=== PATIENT | female | born 1995 | race African-American/Black ===

== ENCOUNTER 2017-08-06 19:07 | Emergency (ER) | payer OTHER, SELFPAY ==
--- NOTE | 2017-08-06 19:49 | RAD ---
LEFT KNEE FOUR VIEWS: 08/06/17 HISTORY: Fall at work with knee pain. There is a small joint effusion present. There is no signs of fracture or dislocation. If internal de rangement is clinically suspected, MRI is suggested. IMPRESSION: Joint effusion. No definite signs of acute fracture. POS: WU
== END 2017-08-06 20:59 | disposition home or self-care (01) ==
LOC: ERS 19:07
DX: S83.92XA Sprain of unspecified site of left knee, initial encounter (principal); R56.9 Unspecified convulsions; W19.XXXA Unspecified fall, initial encounter; Y92.69 Other specified industrial and construction area as the place of occurrence of the external cause; Y99.0 Civilian activity done for income or pay

== ENCOUNTER 2017-08-21 20:50 | Emergency (ER) | payer SELFPAY ==
[2017-08-21] MEDS ORDERED: Ketorolac Tromethamine 30 MG/ML VIAL ONE (23:00)
== END 2017-08-22 00:26 | disposition home or self-care (01) ==
LOC: ERS 20:50
DX: J11.1 Influenza due to unidentified influenza virus with other respiratory manifestations (principal); R56.9 Unspecified convulsions
CPT/HCPCS: 96372; J1885

== ENCOUNTER 2017-10-19 06:17 | Emergency (ER) | payer SELFPAY ==
[2017-10-19] MEDS ORDERED: diphenhydrAMINE 50 MG/ML VIAL ONE (06:43)
[2017-10-19] MEDS ORDERED: Acetaminophen 500 MG TAB ONE (06:43)
[2017-10-19] MEDS ORDERED: Metoclopramide HCl 10 MG/2 ML VIAL ONE (06:43)
== END 2017-10-19 09:48 | disposition home or self-care (01) ==
LOC: ERS 06:17
DX: R51 Headache (principal); G40.909 Epilepsy, unspecified, not intractable, without status epilepticus
CPT/HCPCS: 96365; 96375; J1200; J2765

== ENCOUNTER 2018-01-11 20:11 | Emergency (ER) | payer SELFPAY ==
[2018-01-11 20:55] LABS: BHCG - Serum POSITIVE (NEGATIVE); Pregs Control Background? CLEAR/WHITE (CLR/WHITE); Pregs Control Bar Appear? YES (CONTROL BAR)
[2018-01-11 21:05] LABS: Bilirubin Negative (Negative); Blood, Urine Negative (Negative); Clarity CLOUDY (Clear); Glucose, Urine (Dipstick) Negative (Negative); Leukocyte Moderate (Negative); Nitrite Negative (Negative); Protein, Urine (Dipstick) Trace mg/dL (Neg-Trace); Specific Gravity, Urine 1.021 (1.002-1.036); pH, Urine 6.5 (5.0-9.0)
[2018-01-11 21:06] LABS: Bacteria/HPF Rare-Few HPF (None Seen); Hyaline Casts/LPF 7-10 HYALINE CAST LPF (0-3 Hyaline); RBC/HPF 0-3 HPF (0-3); WBC/HPF 21-50 HPF (0-3)
[2018-01-11 21:08] LABS: ALT (SGPT) 7 U/L (8-55); AST (SGOT) 10 U/L (5-34); Albumin 3.7 g/dL (3.5-5.0); Alkaline Phosphatase 79 U/L (40-150); Anion Gap 11 mmol/L (10-20); BUN (Urea Nitrogen) 5 mg/dL (7.0-18.7); Bilirubin, Total 0.5 mg/dL (0.2-1.2); Calc. Creatinine Clearance 0 mL/min (70-130); Carbon Dioxide 23 mmol/L (22-29); Chloride 106 mmol/L (98-107); Estimated GFR-MDRD Greater than 90; Globulin 3.1 g/dL (2.4-3.5); Glucose 76 mg/dL (70-105); Lipase 4 U/L (8-78); Potassium 3.6 mmol/L (3.5-5.1); Protein, Total 6.8 g/dL (6.0-8.3); Sodium 136 mmol/L (136-145)
[2018-01-11 21:16] LABS: #Basophils 0.1 thou/uL (0.0-0.2); #Eosinphils 0.1 thou/uL (0.0-0.7); #Lymphocytes 2.2 thou/uL (1.20-3.40); #Monocytes 0.4 thou/uL (0.11-0.59); #Neutrophils 4.6 thou/uL (1.40-6.50); %Eosinophils 1.2 % (0.0-10.0); %Lymphocytes 29.5 % (21.0-51.0); %Monocytes 5.7 % (0.0-10.0); %Neutrophils 62.6 % (42.0-75.0); Mean Corpuscular HGB CONC 35.4 g/dL (32.0-36.0); Mean Corpuscular Hemoglobin 31.2 pg (27.0-31.0); Mean Platelet Volume 10.3 fL (7.4-10.4); PLT Morphology Comment Appears Decreased; Platelet Count 100 thou/uL (130-400); RBC Distribution Width 12.9 % (11.5-14.5); Red Blood Cell (RBC) Count 3.52 mill/uL (4.20-5.40); White Blood Cell (WBC) Count 7.4 thou/uL (4.8-10.8)
--- NOTE | 2018-01-11 21:40 | ULT ---
OB ULTRASOUND: HISTORY: Left abdominal pain with intrauterine . FINDINGS: There is a viable intrauterine . Gestational age by ultrasound is 19 weeks 3 days. Biometr y measurements are consistent. Placenta: Posterior. Amniotic fluid: Within the normal range. heart rate: 150 beats per minute. Position: Vertex. Limited anatomy performed. The spine, bladder, intracranial contents, four-chamber heart, stom ach, kidneys, and cord insertion identified. IMPRESSION: A 19 week and 3 day gestational age by ultrasound measurement. No abnormality identified. POS: MELVA
== END 2018-01-11 21:45 | disposition home or self-care (01) ==
LOC: ERS 20:11
DX: O23.42 Unspecified infection of urinary tract in pregnancy, second trimester (principal); Z3A.19 19 weeks gestation of pregnancy
CPT/HCPCS: 76805; 80053; 81003; 81015; 83690; 84703; 85025; 87086

== ENCOUNTER 2018-06-02 10:29 | Inpatient (IN) | payer OTHER ==
[2018-06-02 11:06] VITALS: BMI 31.7
[2018-06-02] MEDS ORDERED: CEFAZOLIN/Water 2 GM/20 ML SYRINGE SLOW IVP SCH (11:11)
[2018-06-02] MEDS ORDERED: Lactated Ringer's 1,000 ML IV SCH (11:11)
[2018-06-02] MEDS ORDERED: Ondansetron PF 4 MG/2 ML Vial IVP PRN ×3 (11:11→16:36)
[2018-06-02] MEDS ORDERED: Bicitra 30 ML UDCUP PO SCH (11:11)
[2018-06-02] MEDS ORDERED: Bupivacaine 0.75% W/DEXTROSE 8.25% 2 ML AMP ONE (11:51)
[2018-06-02] MEDS ORDERED: Morphine PF 1 MG/ML SYR ONE (11:58)
[2018-06-02] MEDS ORDERED: Lidocaine 2% PF Inj 2 ML VIAL ONE (11:59)
[2018-06-02 12:09] LABS: HBSAg Index 0.22 S/CO (0-0.99); Hep B Surf Ag Non-Reactive S/CO (NonReactive); Syphilis Antibody Nonreactive (Nonreactive); Syphilis Antibody Index 0.07 S/CO (<1.00 Non-Reactive)
[2018-06-02 12:24] LABS: Hemoglobin 9.5 g/dL (12.0-16.0); Mean Corpuscular HGB CONC 30.7 g/dL (32.0-36.0); Mean Corpuscular Hemoglobin 26.7 pg (27.0-31.0); Mean Corpuscular Volume 86.7 fL (78.0-98.0); Mean Platelet Volume 11.3 fL (7.4-10.4); Platelet Count 105 thou/uL (130-400); RBC Distribution Width 13.5 % (11.5-14.5); Red Blood Cell (RBC) Count 3.56 mill/uL (4.20-5.40); White Blood Cell (WBC) Count 5.4 thou/uL (4.8-10.8)
[2018-06-02] MEDS ORDERED: Oxytocin 10 UNITS/ML VIAL ONE ×2 (12:37)
[2018-06-02] MEDS ORDERED: Triamcinolone 40 MG/ML VIAL FS ONE (13:00)
[2018-06-02 13:27] LABS: Amphetamine Not Detected (NotDetected); Barbiturates Screen Not Detected (NotDetected); Benzodiazepine Screen Not Detected (NotDetected); Cocaine Metabolite Screen Not Detected (NotDetected); Medtox Reader # READER 1; Methadone Not Detected (NotDetected); Methamphetamine Not Detected (NotDetected); Opiate Screen Not Detected (NotDetected); Oxycodone Screen Not Detected (NotDetected); Phencyclidine (PCP) Not Detected (NotDetected); THC/Cannabinoid Screen Not Detected (NotDetected); Tricyclic Screen Not Detected (NotDetected)
[2018-06-02 13:28] LABS: Medtox Control Line Valid? VALID (VALID)
[2018-06-02] MEDS ORDERED: HYDROcodone/Acetaminophen 5/325 mg Tablet PO PRN ×2 (14:51)
[2018-06-02] MEDS ORDERED: NS / Oxytocin 40 units/1000ml 1,000 ML IV SCH (14:51)
[2018-06-02] MEDS ORDERED: Bisacodyl 10 MG SUPP PR PRN (14:51)
[2018-06-02] MEDS ORDERED: Meperidine HCl/PF 25 MG/ML VIAL IM PRN (14:51)
[2018-06-02] MEDS ORDERED: Ibuprofen 800 MG TAB PO SCH (15:15)
[2018-06-02] MEDS: diphenhydrAMINE 25 MG CAP PO PRN ×2 (15:53→22:39)
[2018-06-02] MEDS ORDERED: diphenhydrAMINE 25 MG CAP PO SCH (16:00)
[2018-06-02] MEDS ORDERED: Naloxone HCl 0.4 mg/ml Vial IVP PRN ×2 (16:36)
[2018-06-02] MEDS ORDERED: Naloxone HCl 0.4 mg/ml Vial IV PRN (16:36)
[2018-06-02] MEDS ORDERED: diphenhydrAMINE 50 MG/ML VIAL IVP PRN (16:36)
[2018-06-02] MEDS ORDERED: Promethazine HCl 25 MG SUPP PR PRN (16:36)
[2018-06-02] MEDS ORDERED: Promethazine HCl 25 MG/ML VIAL IM PRN (16:36)
[2018-06-02] MEDS ORDERED: Eucerin (Mineral Oil/Petrolatum,White) 30 gm Jar TOP PRN (16:36)
[2018-06-02] MEDS ORDERED: Communication Order-Pharmacy FS SCH (16:45)
[2018-06-02] MEDS: Docusate Calcium (SURFAK) 240 MG CAP PO SCH (22:39)
[2018-06-03] MEDS: Ferrous Sulfate 325 MG TAB PO SCH ×3 (02:22→21:47)
[2018-06-03] MEDS: Ibuprofen 800 MG TAB PO SCH ×4 (02:22→21:47)
[2018-06-03] MEDS ORDERED: Meperidine HCl/PF 25 MG/ML VIAL IM PRN (04:45)
[2018-06-03] MEDS: HYDROcodone/Acetaminophen 5/325 mg Tablet PO PRN ×2 (04:57→09:09)
[2018-06-03] MEDS: Simethicone Chewable 80 MG TAB PO PRN (04:57)
[2018-06-03 06:50] LABS: Hemoglobin 9.1 g/dL (12.0-16.0); Mean Corpuscular HGB CONC 32.4 g/dL (32.0-36.0); Mean Corpuscular Hemoglobin 28.1 pg (27.0-31.0); Mean Corpuscular Volume 86.7 fL (78.0-98.0); Mean Platelet Volume 11.1 fL (7.4-10.4); Platelet Count 94 thou/uL (130-400); RBC Distribution Width 13.1 % (11.5-14.5); Red Blood Cell (RBC) Count 3.24 mill/uL (4.20-5.40)
--- NOTE | 2018-06-03 08:19 | DN-2 ---
DATE OF PROCEDURE: 06/02/2018 RESIDENT: Dr. Alan Lee, PGY-2. ATTENDING PHYSICIAN: Dr. Wesley Houston PROCEDURE: Repeat low transverse section. PREOPERATIVE DIAGNOSES: 1. Term intrauterine . 2. Previous section. 3. Gestational thrombocytopenia POSTOPERATIVE DIAGNOSES: 1. Term intrauterine . 2. Previous section. 3. Gestational thrombocytopenia ANESTHESIA: Spinal. INDICATIONS: This patient is a 23-year-old -0-0-1 female at 39 and 1 weeks ' gestation who presents for a repeat scheduled . Platelets 100,000 PROCEDURE IN DETAIL: After risks, benefits, and alternatives were explained to the patient, she gave informed consent. Preoperative antibiotics included cefazolin 2 grams IV. The patient was taken to the operating room and spinal anesthesia was initiated. She was placed in the supine position with a left tilt and prepped and draped in usual sterile fashion. Pfannenstiel incision was made with the scalpel and carried down to the level of the fascia which was sharply nicked. The fascial cut was extended bilaterally with curved Aggarwal scissors. Inferior and superior edges of the cut fascial edges were elevated with Parminder clamps and the underlying rectus muscles were sharply and bluntly dissected free. The recti were divided digitally and retracted manually. Peritoneum was entered bluntly and retracted manually. Bladder blade was placed. Bladder flap was created with Metzenbaum scissors. A low transverse score was made with a scalpel and the uterus was entered in the midline with the scalpel. Clear fluid was seen. The hysterotomy was extended manually. The infant was noted to be vertex and was easily delivered by fundal pressure. Mouth and nares were bulb suctioned. Cord clamped and cut and grossly normal male infant was handed to waiting nurse. Cord blood was obtained. Placenta was manually extracted and found to be intact with 3-vessel cord and discarded. The uterus was externalized and the endometrium was curetted with a dry lap. The bladder blade was replaced. The uterus was closed with a running locking 0 Vicryl followed by a few mattress 0 Vicryl sutures. Following this, hemostasis was noted. The abdomen was irrigated with saline and suctioned free of clots. The uterus was internalized and the hysterotomy was again noted to be hemostatic. The peritoneum was closed with a running suture of 3-0 Vicryl. The fascia was closed with a running nonlocking 0 PDS suture. The subcu tissue was irrigated and no bleeders. The subcu was approximated with three 3-0 Vicryl sutures. The patient had a keloid from previous scar. We removed the keloid with a scalpel. The skin was approximated with ayah and pressure dressing was placed. We then injected a 20 mL of 20 mg Kenalog mixed with saline to help prevent future keloid formation. All counts were correct. The patient tolerated the procedure well and was taken to recovery room in stable condition. ESTIMATED BLOOD LOSS: 800 mL. COMPLICATIONS: None. SPECIMENS: Cord blood sent to lab for blood type. FINDINGS: Grossly normal male with Apgars of 8 and 9. Grossly normal placenta, 3-vessel cord discarded. DRAINS: Lujan to gravity draining clear urine. MTDD
[2018-06-03] MEDS: Prenatal Vitamin 1 TAB PO SCH (09:09)
[2018-06-03] MEDS: Docusate Calcium (SURFAK) 240 MG CAP PO SCH ×2 (09:09→21:47)
[2018-06-04] MEDS: Ibuprofen 800 MG TAB PO SCH ×3 (06:38→22:10)
[2018-06-04] MEDS: Ferrous Sulfate 325 MG TAB PO SCH ×2 (08:32→21:15)
[2018-06-04] MEDS: Prenatal Vitamin 1 TAB PO SCH (08:32)
[2018-06-04] MEDS: Docusate Calcium (SURFAK) 240 MG CAP PO SCH ×2 (08:32→21:15)
[2018-06-04] MEDS: Simethicone Chewable 80 MG TAB PO PRN (08:33)
[2018-06-04] MEDS: HYDROcodone/Acetaminophen 5/325 mg Tablet PO PRN ×2 (17:52→22:11)
[2018-06-05] MEDS: Ibuprofen 800 MG TAB PO SCH ×2 (06:13→14:41)
[2018-06-05] MEDS: HYDROcodone/Acetaminophen 5/325 mg Tablet PO PRN (06:15)
[2018-06-05 08:04] VITALS: BP 117/66; TEMP 98.2
[2018-06-05] MEDS: Docusate Calcium (SURFAK) 240 MG CAP PO SCH (10:18)
[2018-06-05] MEDS: Ferrous Sulfate 325 MG TAB PO SCH (10:18)
[2018-06-05] MEDS: Prenatal Vitamin 1 TAB PO SCH (10:18)
== END 2018-06-05 16:50 | disposition home or self-care (01) | DRG 788 ==
LOC: L&D 10:29 → 3SW 14:53
PROVIDERS: ADMIT Family Medicine; ATTEND Family Medicine
PROC: 10D00Z1 Extraction of Products of Conception, Low, Open Approach (ICD-10-PCS; principal; 2018-06-02)
DX: O99.12 Other diseases of the blood and blood-forming organs and certain disorders involving the immune mechanism complicating childbirth (principal); D69.6 Thrombocytopenia, unspecified; Z3A.39 39 weeks gestation of pregnancy; Z37.0 Single live birth
CPT/HCPCS: 36415; 51702; 80306; 85027; 86780; 86850; 86900; 86901; 87340; J2274; J2405; J2590; J3301; J3490

== ENCOUNTER 2018-09-19 14:30 | Emergency (ER) | payer OTHER ==
[2018-09-19 15:23] LABS: #Basophils 0.1 thou/uL (0.0-0.2); #Lymphocytes 1.4 thou/uL (1.20-3.40); #Monocytes 0.5 thou/uL (0.11-0.59); #Neutrophils 3.9 thou/uL (1.40-6.50); %Basophils 1.4 % (0.0-1.0); %Eosinophils 0.5 % (0.0-10.0); %Lymphocytes 24.2 % (21.0-51.0); %Monocytes 7.9 % (0.0-10.0); Hemoglobin 11.7 g/dL (12.0-16.0); Mean Corpuscular HGB CONC 33.7 g/dL (32.0-36.0); Mean Corpuscular Hemoglobin 28.6 pg (27.0-31.0); Mean Corpuscular Volume 84.8 fL (78.0-98.0); Mean Platelet Volume 10.6 fL (7.4-10.4); Platelet Count 139 thou/uL (130-400); RBC Distribution Width 14.7 % (11.5-14.5); Red Blood Cell (RBC) Count 4.08 mill/uL (4.20-5.40); White Blood Cell (WBC) Count 5.9 thou/uL (4.8-10.8)
[2018-09-19 16:16] LABS: Bilirubin Negative (Negative); Blood, Urine Negative (Negative); Clarity CLOUDY (Clear); Glucose, Urine (Dipstick) Negative (Negative); Leukocyte Moderate (Negative); Nitrite Negative (Negative); Protein, Urine (Dipstick) 30 mg/dL (Neg-Trace); Specific Gravity, Urine 1.028 (1.002-1.036); pH, Urine 7.5 (5.0-9.0)
[2018-09-19 16:19] LABS: Bacteria/HPF 2+ HPF (None Seen); Hyaline Casts/LPF 7-10 HYALINE CAST LPF (0-3 Hyaline); Pathc Cast-AUWi Flag 1.16 (0-2.49); Squamous Epithelial 21-50 HPF (0-3); WBC/HPF 21-50 HPF (0-3)
== END 2018-09-19 16:50 | disposition home or self-care (01) ==
LOC: ERS 14:30
DX: N39.0 Urinary tract infection, site not specified (principal)
CPT/HCPCS: 36415; 81003; 81015; 85025; 87804; 99284

== ENCOUNTER 2019-02-10 08:33 | Outpatient (CLI) | payer OTHER ==
--- NOTE | 2019-02-10 11:00 | ULT ---
OB ULTRASOUND LIMITED: Date: 02/10/19 HISTORY: Follow-up twin gestation, second trimester. COMPARISON: 01/24/19. FINDINGS: Viable twin intrauterine fetuses are noted. This appears to be monochorionic, diamniotic, with a sing le placenta and an intact membrane. Posterior placenta. Amniotic fluid somewhat prominent with an AUNDREA of 21.5. TWIN A: Cephalic and inferior position. BPD: 7.0 cm --- 28 weeks/2 days HC: 25.6 cm --- 27 weeks/6 days AC: 22.8 cm --- 27 weeks/2 days FL: 5.13 cm --- 27 weeks/4 days heart rate of 144 beats/minute. Gestational age average is 27 weeks/6 days. Estimated weight is 1,067 gm. MICH of 05/06/2019. TWIN B: Transverse, maternal left side. BPD: 6.6 cm --- 26 weeks/4 days HC: 24.5 cm --- 26 weeks/4 days AC: 21.0 cm --- 25 weeks/0 days FL: 4.7 cm --- 25 weeks/6 days Estimated age is 26 weeks/1 day weight is 854 gm. MICH: 05/18/2019. Anatomy: Twin A: Kidneys, bladder, stomach, 4 chamber heart, and cerebellum were all seen and appear within n ormal limits. Twin B: Kidneys, bladder, stomach, 4 chamber heart, lateral ventricle, and cerebellum were seen and appear unremarkable. IMPRESSION: Viable twin intrauterine fetuses as above. POS: OFF
== END 2019-02-10 08:34 | disposition home or self-care (01) ==
LOC: BICULT 08:33
PROVIDERS: ATTEND Nurse Practitioner
DX: O09.92 Supervision of high risk pregnancy, unspecified, second trimester (principal); Z3A.27 27 weeks gestation of pregnancy
CPT/HCPCS: 76815

== ENCOUNTER 2019-02-24 12:25 | Day surgery (SDC) | payer OTHER ==
[2019-02-24 13:01] VITALS: BMI 29.2
[2019-02-24 13:15] VITALS: BP 113/64; TEMP 98.2
[2019-02-24 14:20] LABS: ALT (SGPT) Less than 7 U/L (8-55); AST (SGOT) 8 U/L (5-34); Alkaline Phosphatase 147 U/L (40-150); Anion Gap 9 mmol/L (10-20); BUN (Urea Nitrogen) 4 mg/dL (7.0-18.7); Bilirubin, Total 0.4 mg/dL (0.2-1.2); Calc. Creatinine Clearance 169 mL/min (70-130); Calcium 8.5 mg/dL (7.8-10.44); Carbon Dioxide 25 mmol/L (22-29); Chloride 105 mmol/L (98-107); Estimated GFR-MDRD Greater than 90; Globulin 2.8 g/dL (2.4-3.5); Glucose 72 mg/dL (70-105); Potassium 3.6 mmol/L (3.5-5.1); Protein, Total 5.8 g/dL (6.0-8.3); Sodium 135 mmol/L (136-145)
--- NOTE | 2019-02-24 14:42 | ULT ---
RIGHT UPPER QUADRANT ULTRASOUND CLINICAL HISTORY: Right upper quadrant pain; 28 weeks . COMPARISON: None. FINDINGS: Liver:Normal echotexture without focal mass. Bile ducts: No intrahepatic or extrahepatic biliary dilation.; common bile duct: 0.47cm Gallbladder: Normal appearing. Zuñiga's sign:None Main portal vein:Patent with hepatopedal flow. Pancreas: Pancreas is obscured by overlying bowel gas Right kidney: No pelvicalyceal dilatation. Right kidney measuring 10.2 x 6.0 x 6.1 cm cm in length. Additional findings: None. IMPRESSION: Normal RUQ ultrasound.
--- NOTE | 2019-02-24 15:16 | PDOC.LDHP ---
Labor and Delivery H&P Chief complaint: abdominal pain HPI: 23 y/o at 28w1d, patient of Neha Lee at , presents with RUQ pain since this morning. Had some vomiting yesterday which has resolved today. Pain was sharp and intermittent in RUQ. Nothing makes worse or better but is improving spontaneously. Had some VB but has resolved. Denies LOF, ctx or decreased FM. with twins. ROS neg for HEENT, CV, pulm, GI, , neuro, psych, skin, musculoskeletal, or constitutional symptoms other than mentioned above. OB History Details: 2 prior LTCS Current complications: di/di twins Past Medical History: Seizure disorder - no meds; last seizure 2 years ago Current medications: none Previous surgical history: low tranverse CS (x2 (NRFHR)) Allergies/Adverse Reactions: Allergies Allergy/AdvReac Type Severity Reaction Status Date / Time No Known Drug Allergies Allergy Verified 02/24/19 13:17 Social history: none - Physical Exam Vital signs reviewed and normal: yes General: NAD, resting Lungs: nonlabored breathing Abdomen: gravid Extremeties: no edema FHT: category 1 (140s/135s, mod variability,+ accels, no decels) [place] contractions every: occasional - Assessment 23 y/o at 28w1d with musculoskeletal discomforts of . No e/o acute process. RUQ ultrasound wnl. status reassuring x 2. - Plan -: D/c home with precautions. Advised to follow up with Dr. Lee in the next week.
== END 2019-02-24 15:25 | disposition home or self-care (01) ==
LOC: L&D/OP 12:25
PROVIDERS: ATTEND Obstetrics & Gynecology
DX: O26.893 Other specified pregnancy related conditions, third trimester (principal); R10.11 Right upper quadrant pain; O99.353 Diseases of the nervous system complicating pregnancy, third trimester; G40.909 Epilepsy, unspecified, not intractable, without status epilepticus; O30.93 Multiple gestation, unspecified, third trimester; Z3A.28 28 weeks gestation of pregnancy
CPT/HCPCS: 36415; 76705; 80053; 99282

== ENCOUNTER 2019-04-01 08:51 | Day surgery (SDC) | payer OTHER ==
[2019-04-01 09:56] LABS: #Basophils 0.1 thou/uL (0.0-0.2); #Eosinphils 0.1 thou/uL (0.0-0.7); #Lymphocytes 1.3 thou/uL (1.20-3.40); #Monocytes 0.3 thou/uL (0.11-0.59); #Neutrophils 3.1 thou/uL (1.40-6.50); %Eosinophils 1.7 % (0.0-10.0); %Monocytes 6.9 % (0.0-10.0); %Neutrophils 63.4 % (42.0-75.0); Hemoglobin 7.9 g/dL (12.0-16.0); Mean Corpuscular HGB CONC 32.7 g/dL (32.0-36.0); Mean Corpuscular Hemoglobin 25.9 pg (27.0-31.0); Mean Corpuscular Volume 79.2 fL (78.0-98.0); Mean Platelet Volume 11.3 fL (7.4-10.4); Platelet Count 80 thou/uL (130-400); RBC Distribution Width 14.3 % (11.5-14.5); Red Blood Cell (RBC) Count 3.04 mill/uL (4.20-5.40); White Blood Cell (WBC) Count 4.9 thou/uL (4.8-10.8)
[2019-04-01 10:10] LABS: ALT (SGPT) Less than 7 U/L (8-55); AST (SGOT) 12 U/L (5-34); Albumin 2.9 g/dL (3.5-5.0); Alkaline Phosphatase 190 U/L (40-150); Anion Gap 12 mmol/L (10-20); BUN (Urea Nitrogen) Less than 4 mg/dL (7.0-18.7); Bilirubin, Total 0.5 mg/dL (0.2-1.2); CK (CPK) 67 U/L (29-168); Calc. Creatinine Clearance 0 mL/min (70-130); Calcium 8.4 mg/dL (7.8-10.44); Carbon Dioxide 21 mmol/L (22-29); Chloride 108 mmol/L (98-107); Estimated GFR-MDRD Greater than 90; Globulin 2.9 g/dL (2.4-3.5); Glucose 73 mg/dL (70-105); Potassium 3.7 mmol/L (3.5-5.1); Protein, Total 5.8 g/dL (6.0-8.3); Sodium 137 mmol/L (136-145)
[2019-04-01] MEDS ORDERED: levETIRAcetam In NaCl (Iso-Os) 1,000 MG in Premix Bag 1 BAG IVPB SCH (10:15)
[2019-04-01 10:18] LABS: Hypochromia SLIGHT = 6-15 cells (100X) (0-5/hpf); MDiff Complete? YES; Microcytosis SLIGHT = 6-15 cells (100X) (0-5/hpf); Platelet Morphology Comment Appears Decreased; Polychromasia SLIGHT = 2-3 cells (100X) (0-2/hpf)
--- NOTE | 2019-04-01 11:27 | PDOC.EVN ---
Event Note - Event Note Event Note: BLAISE Rockwell PHONE CALL WITH DR. SEARS in ED Time: 1125 Patient info: This patient presented to the ED s/p witnessed siezure at "28 weeks" by report. [facility] that "she has not been seen with him in a while". The patient has twins, known epilepsy HX off of meds. About 1 hour ago I received the initial call from Dr Sears about this: there was no evidence HTN. I requested OB lazo for growth/EGAs as she was zachary stable and nonhypertensive. I requested neuro to be called prior to L&D transfer for monitoring. Neurology (Dr Hendricks) has been called by Dr Sears. He staerted her on 1000mg po Keprra...and will place her on 500mg po BIB. He will follow up with her. We will transfer to L&D for observation/NST. I have requested a urine tox for file. CBC and CMP ok. OB david complete and awaiting report. Awaiting patient arrival in L&D. 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
[2019-04-01] MEDS ORDERED: hydrALAZINE 20 MG/ML VIAL SLOW IVP PRN (11:36)
--- NOTE | 2019-04-01 11:39 | ULT ---
ULTRASOUND OBSTETRICAL COMPLETE: DATE: 04/01/2019. HISTORY: A 23-year-old female in 3rd trimester of status post seizure.] FINDINGS: number: Twin. Maternal cervix: 3.5 cm in length and closed. Placenta: Posterior. No placenta previa. Grade III. Diamniotic, monochorionic. FETUS A: Located to material right. lie: Cephalic. Amniotic fluid: AUNDREA 18.5 cm. heart rate: 123 b.p.m. The following anatomy is visualized, with no evidence of anomalies: Bladder, kidneys, 4-chamber heart, and stomach. biometry: Head circumference (HC): 31.0 cm 34 w 4 d Biparietal diameter (BPD): 8.4 cm 33 w 5 d Abdominal circumference (AC): 28.1 cm 32 w 1 d Femur length (FL): 6.3 cm 32 w 4 d Average ultrasound age (AUA): 33 w 3 d Estimated date of delivery (MICH): 05/17/2019. Last menstrual period (LMP): 08/11/2018. Gestational age by LMP: 33 w 2 d. Estimated weight (EFW): 2021 g +/- 299 g (4 lb 7 oz +/- 11 oz). FETUS B: Located to maternal left. lie: Breech. Amniotic fluid: AUNDREA not measured separately from fetus A, despite the presence of amnion. Subjective ly within normal limits. heart rate: 131 b.p.m. The following anatomy is visualized, with no evidence of anomalies: Head, 4-chamber heart, stomach, kidneys, and bladder. biometry: Head circumference (HC): 30.4 cm 33 w 6 d Biparietal diameter (BPD): 8.7 cm 34 w 6 d Abdominal circumference (AC): 27.9 cm 32 w 0 d Femur length (FL): 6.4 cm 33 w 2 d Average ultrasound age (AUA): 33 w 2 d Estimated date of delivery (MICH): 05/18/2019. Estimated weight (EFW): 2051 g +/- 304 g (4 lb 8 oz +/- 11 oz). IMPRESSION: 1. Third trimester gestation. 2. Monochorionic, diamniotic. 3. Estimated gestational age of 33 weeks, and 2 or 3 days 4. Twin A, vertex lie. 5. Twin B, breech lie. JN R POS: [facility]
[2019-04-01 12:02] VITALS: BMI 30.9
--- NOTE | 2019-04-01 12:57 | HP ---
TIME: 1155 hours until about 1205 hours. LOCATION: Labor and Delivery in triage bed A. CHIEF COMPLAINT: This patient presented to the ER, status post seizure at about 8:00 this morning. HISTORY OF PRESENT ILLNESS: This is a 23-year-old , G3, P2 with 2 previous C-sections with an estimated due date of May 18, placing her at 33 weeks and 2 days. She has had a seizure disorder for many years, since 2011. She states that she was previously on Dilantin, but has not been on medication since her first . She cannot remember who had started her or who had discontinued the medication at that time. She states that she has seen Dr. Houston for this , but Dr. Houston does not have an adequate record of that. REVIEW OF SYSTEMS: She has no contractions or vaginal bleeding. There is no leakage of fluid. There is good movement. PAST MEDICAL HISTORY: Otherwise, negative. ALLERGIES: NONE. SOCIAL HISTORY: Denies. PAST SURGICAL HISTORY: x2. MEDICATIONS: Iron and vitamins. She did receive a loading dose of Keppra at 1000 mg p.o. daily. BLOOD TRANSFUSION: Blood transfusion was noted in the medical record in the EMR in 2016, where her blood type was confirmed to be Rh positive. The patient does not remember getting a blood transfusion. PHYSICAL EXAMINATION: VITAL SIGNS: Her blood pressure is 124/67, her pulse is in the 80s. Her O2 saturation is normal in the high 90s. GENERAL: She is somewhat somnolent, but is still oriented and can provide answers to questions. There is no vaginal bleeding and no evidence of rupture of membranes grossly on exam. ABDOMEN: Soft and nontender. On monitor, there is heart tones x2 and they are appropriate for gestational age in terms of reactivity. There are no contractions on the tocodynamometer. LABORATORY DATA: CBC and CMP were drawn in the emergency room and they were both normal. A urine toxicology report has been ordered and is still pending. I have requested an OB ultrasound and that has been completed. The report, however, is still pending. Actually, the report has now been concluded and I am reviewing it as this dictation is occurring. According to the report, there is a twin gestation noted. The cervix is 3.5 cm in length and appears closed. The placenta is posterior without evidence of previa. Fetus A is in a cephalic presentation with normal amniotic fluid of about 18. Anatomy was visualized with no evidence of abnormalities. The estimated gestational age of twin A is 33 weeks and 3 days. The estimated weight is about 2021 g. On fetus B, that baby is breech. The fluid is noted to be within normal limits. Heart rate is normal as well. The estimated weight is 1 g. The impression for that ultrasound is a twin gestation, monochorionic diamniotic. There is no discrepancy noted in terms of weight. ASSESSMENT: This is a multigravida at 33 weeks with a known seizure disorder, off medication, section x2, with poor care. PLAN: 1. We will monitor her here, status post seizure. 2. No evidence of acute intracranial process. 3. No evidence of preeclampsia. 4. Blood type is checked and it is Rh positive. 5. I have ordered a urine toxicology screen to make sure that there is no other source of seizure. 6. No need for RhoGAM as she is Rh positive. 7. She will need followup with [facility] and/or [facility] as she does not seem to have established care. This patient will also need a repeat , so we need to make sure she has followup for that. Job ID: [id number]
--- NOTE | 2019-04-01 13:40 | PDOC.EVN ---
Event Note - Event Note Event Note: clinically well FHTs x 2 reactive We have called [facility] to come and set up follow up appoitment with her. Cleo as outpatient. Awaiting [facility]ox
[2019-04-01 14:08] LABS: Amphetamine Not Detected (NotDetected); Barbiturates Screen Not Detected (NotDetected); Benzodiazepine Screen Not Detected (NotDetected); Cocaine Metabolite Screen Not Detected (NotDetected); Medtox Control Line Valid? VALID (VALID); Medtox Reader # READER 4; Methadone Not Detected (NotDetected); Methamphetamine Not Detected (NotDetected); Opiate Screen Not Detected (NotDetected); Oxycodone Screen Not Detected (NotDetected); Phencyclidine (PCP) Not Detected (NotDetected); THC/Cannabinoid Screen Not Detected (NotDetected); Tricyclic Screen Not Detected (NotDetected)
== END 2019-04-01 13:40 | disposition home or self-care (01) ==
LOC: ERS 08:51 → L&D/OP 11:42
PROVIDERS: ATTEND Obstetrics & Gynecology
DX: O99.353 Diseases of the nervous system complicating pregnancy, third trimester (principal); G40.909 Epilepsy, unspecified, not intractable, without status epilepticus; O30.033 Twin pregnancy, monochorionic/diamniotic, third trimester; Z79.899 Other long term (current) drug therapy; Z3A.33 33 weeks gestation of pregnancy
CPT/HCPCS: 36415; 76815; 80053; 80306; 82550; 85025; 96361; 96365; 99282; J1953

== ENCOUNTER 2019-04-15 10:00 | Inpatient (IN) | payer OTHER ==
--- NOTE | 2019-04-15 20:41 | PDOC.FPROB ---
FMR OB H&P: HPI - History of Present Illness Chief Complaint: rLTCS, Beaver-di twin gestation, Anemia Indentification: 23 year old at 36.2 wks by 24.5 wk sono History of Present Illness: 23 year old at 36.2 wks by 24.5 wk sono presents for rLTCS. Patient with poor transportation and unable to find a ride in the morning for her scheduled C/S. Additionally, patient with significant anemia with Hg 7.9 on . She is in need of blood transfusion prior to rLTCS. Patient has history of requiring blood transfusion in the past. Patient has had very limited care on L&D. She has not seen an OB provider. She presented to care 2 days ago, at which point she was promptly referred to [facility] clinic to be seen by OPERATING ROOM COORDINATOR. The case was discussed in detail. Given mono-di twin gestation, decision was made to proceed with C/S at 36.2 weeks. Patient also has history of seizure disorder with last seizure occurring on 04/01. She was loaded with Keppra at that time, but she never picked up the medication out patient. Patient stopped taking seizure medication during first . Patient endorses umer santill[place] contractions. She denies LoF, vaginal bleeding, vaginal discharge. She endorses good movement. Primary Care Physician: WILMER Moreno FMR OB H&P: Current - Care : 3 Para: 2001 Gestational age: 36.2 wks Due date: 05/11/2019 Dating Criteria: 24.5 wk sono - OB Labs Blood type: O RH: positive Antibody Screen: negative HIV: negative RPR: negative HepBsAg: negative Rubella: immune Quad screen: unknown Urine drug screen: negative (Previously positive for THC; neg 04/01) Gonorrhea: unknown Chlamydia: unknown GBS: unknown - Additional Ultrasound Additional: Beaver-di twin gestation No discordance noted on 04/0122 Grade III placenta FMR OB H&P: History - Past Medical History PMH: Seizure disorder not on anti-seizure medications; last seizure 04/01. Loaded with Keppra at that time, but patient never picked up medication. Stopped taking medications during first . - OB History OB History: Hx LTCS x2; initial C/S for NRFHT's Beaver-di twin gestation Limited/No care; has not been followed by M and presented to care at 36.0 wks Anemia of ; last Hg 04/01 was 7.9 - MAMMOGRAPHY TECHNICIAN History MAMMOGRAPHY TECHNICIAN History: Denies history of STD's or PID - Surgical History Sx History: LTCS x2 - Social History Social History: Denies alcohol, tobacco, or drug use; however, THC positive on previous drug screen. Drug screen on 04/01 was negative. - Family History Family History: Denies any significant family history. FMR OB H&P: Medications - Current Allergies/Adverse Reactions: Allergies Allergy/AdvReac Type Severity Reaction Status Date / Time No Known Drug Allergies Allergy Verified 04/01/19 12:04 FMR OB H&P: ROS - Review of Systems General: denies: fever/chills, weight/appetite/sleep changes Eyes: denies: vision changes ENT: denies: nasal congestion, rhinorrhea Cardiovascular: reports: edema. denies: chest pain, palpitation Respiratory: denies: cough, congestion, shortness of breath Gastrointestinal: denies: abdominal pain, nausea, vomiting Genitourinary (Female): denies: dysuria, vaginal discharge, vaginal pain, vaginal pressure Musculoskeletal: denies: pain, stiffness Neurologic: reports: weakness. denies: numbness, syncope Integumentary: denies: itching, rash, lesions Hematologic/Lymphatic: denies: prolonged or excessive bleeding Psychological: denies: depression, anxiety FMR OB H&P: Vital Signs - Maternal Vital signs: BP 126/86 Pulse 98 Afebrile - Heart Tones Baseline: 160 (160/134) Variability: moderate Acceleration: present Deceleration: absent Category: category 1 [place] contractions every: Irregular FMR OB H&P: Physical Exam - Physical Exam General: NAD, awake, alert and oriented HEENT: EOMI, MMM, grossly normal vision, grossly normal hearing Heart: RRR Deviation from normal: 3/6 systolic murmur General: CTAB, no respiratory distress Abdomen: soft, gravid, non-tender Musculoskeletal: pulses present, FROM in all four extremities Neurological: no tremor, no focal deficit Skin: no rash, capillary refill <2 seconds Lymphatic: no unusual bruising or bleeding, no purpura Psychiatric: intact recent and remote memory Deviation from normal: flat affect FMR OB H&P: A/P - Problem List (1) Monochorionic diamniotic twin gestation in third trimester Status: Acute Code(s): O30.033 - TWIN , MONOCHORIONIC/DIAMNIOTIC, THIRD TRIMESTER (2) Anemia affecting in third trimester Status: Acute Code(s): O99.013 - ANEMIA COMPLICATING , THIRD TRIMESTER (3) Seizure disorder Status: Acute Code(s): G40.909 - EPILEPSY, UNSP, NOT INTRACTABLE, WITHOUT STATUS EPILEPTICUS (4) No care in current Status: Acute Code(s): O09.30 - SUPRVSN OF PREG W INSUFFICIENT ANTENAT CARE, UNSP TRIMESTER (5) Previous delivery, delivered Status: Acute Code(s): O34.219 - MATERNAL CARE FOR UNSP TYPE SCAR FROM PREVIOUS DEL Disposition: 23 year old at 36.2 wks by 24.5 wk sono presents for rLTCS. 1. 36.2 wk mono-di twin gestation - Limited/no PNC - Saw [facility] on 04/14 with recommendations for rLTCS given 36 wk gestation - Received betamethasone x2 - HIV, RPR, Hep B pending - GC/CT pending - UDS pending - rLTCS scheduled for 04/16 at 12:00 PM 2. Anemia of - Hg/Hct 7.9/24.1 on 04/01 - Type and cross 2 units and transfuse tonight - Monitor closely - Repeat H&H after transfusion and prior to C/S - Patient has not been taking iron supplementation during despite recommendations to do so 3. Seizure disorder - Last seizure 04/01, received loading dose of Keppra at that time - Patient never picked up medication from pharmacy, she was encouraged to do so - Patient stopped medications during first 4. No PNC - Presented at 36 wks gestation - Had several visits to L&D and ER, with lab work available for review - UDS pending; previously positive for THC with negative UDS on 04/01 - GC/CT pending - Uncertain if patient actually got Tdap - HIV, RPR, Hep B pending 5. Thrombocytopenia - BP appears well controlled - Possibly gestational thrombocytopenia - Repeat CBC pending - Will give platelets with blood transfusion - Patient has had thrombocytopenia in the past, during first platelets were 80 Dispo: Admit to L&D. Anticipate LOS >48 hours. Discussion: Date/Time: 04/15/192035 This H&P was discussed with Dr. Mayfield who agrees with the above documentation and plan. Signature: Irma Moreno, DO PGY-3 Addendum - Attending - Attending Attestation Date/Time: 04/19/19941 I personally evaluated the patient and discussed the management with Dr. Moreno I agree with the History, Examination, Assessment and Plan documented above with any addition or exceptions noted below. Admit for preoperative blood transfusion. Repeat in the morning for repeat with mono/di twin gestation
[2019-04-15 23:08] VITALS: BMI 32.1
[2019-04-15] MEDS ORDERED: Ondansetron PF 4 MG/2 ML Vial IVP PRN (23:26)
[2019-04-15] MEDS ORDERED: Promethazine HCl 25 MG/ML VIAL IM PRN (23:26)
[2019-04-15] MEDS ORDERED: hydrALAZINE 20 MG/ML VIAL SLOW IVP PRN (23:26)
[2019-04-15] MEDS ORDERED: Acetaminophen 500 MG TAB PO PRN (23:26)
[2019-04-15 23:53] LABS: Hemoglobin 7.6 g/dL (12.0-16.0); Mean Corpuscular HGB CONC 33.5 g/dL (32.0-36.0); Mean Corpuscular Volume 77.6 fL (78.0-98.0); Mean Platelet Volume 11.5 fL (7.4-10.4); Platelet Count 109 thou/uL (130-400); RBC Distribution Width 14.6 % (11.5-14.5); Red Blood Cell (RBC) Count 2.93 mill/uL (4.20-5.40); White Blood Cell (WBC) Count 7.2 thou/uL (4.8-10.8)
[2019-04-16 00:19] LABS: Syphilis Antibody Nonreactive (Nonreactive); Syphilis Antibody Index 0.05 S/CO (<1.00 Non-Reactive)
[2019-04-16 00:19] LABS: Amphetamine Not Detected (NotDetected); Barbiturates Screen Not Detected (NotDetected); Benzodiazepine Screen Not Detected (NotDetected); Cocaine Metabolite Screen Not Detected (NotDetected); Medtox Control Line Valid? VALID (VALID); Medtox Reader # READER 1; Methadone Not Detected (NotDetected); Methamphetamine Not Detected (NotDetected); Opiate Screen Not Detected (NotDetected); Oxycodone Screen Not Detected (NotDetected); Phencyclidine (PCP) Not Detected (NotDetected); THC/Cannabinoid Screen Not Detected (NotDetected); Tricyclic Screen Not Detected (NotDetected)
[2019-04-16 00:20] LABS: HBSAg Index 0.15 S/CO (0-0.99); HIV (1/2) Antibody/Antigen Non-Reactive (NonReactive); HIV 1/2 INDEX 0.07 S/CO (<1.00); Hep B Surf Ag Non-Reactive S/CO (NonReactive)
[2019-04-16] MEDS ORDERED: Calcium Carbonate 500 MG ChewTAB PO PRN (02:39)
[2019-04-16] MEDS: Lactated Ringer's 1,000 ML IV SCH ×2 (10:00→20:11)
[2019-04-16 10:20] LABS: Hemoglobin 9.1 g/dL (12.0-16.0); Mean Corpuscular HGB CONC 32.9 g/dL (32.0-36.0); Mean Corpuscular Hemoglobin 26.9 pg (27.0-31.0); Mean Platelet Volume 10.6 fL (7.4-10.4); Platelet Count 102 thou/uL (130-400); RBC Distribution Width 15.2 % (11.5-14.5); Red Blood Cell (RBC) Count 3.36 mill/uL (4.20-5.40); White Blood Cell (WBC) Count 6.8 thou/uL (4.8-10.8)
[2019-04-16] MEDS ORDERED: CEFAZOLIN 1 GM VIAL SLOW IVP SCH (10:45)
[2019-04-16] MEDS ORDERED: Bicitra 30 ML UDCUP PO SCH ×2 (10:45→11:00)
[2019-04-16] MEDS ORDERED: CEFAZOLIN 2 GM in Premix Bag 1 BAG IVPB SCH (11:15)
[2019-04-16] MEDS ORDERED: ePHEDrine 50 MG/ML VIAL ONE (12:23)
[2019-04-16] MEDS ORDERED: Dexamethasone 20 MG/5 ML VIAL ONE (12:23)
[2019-04-16] MEDS ORDERED: Ondansetron PF 4 MG/2 ML Vial ONE ×2 (12:23→13:14)
[2019-04-16] MEDS ORDERED: Ketorolac Tromethamine 30 MG/ML VIAL ONE ×2 (12:23→14:54)
[2019-04-16] MEDS ORDERED: ePHEDrine/0.9% NaCl/PF SYRINGE 50 mg/10 ml ONE (13:14)
[2019-04-16] MEDS ORDERED: MORPHINE 5 MG/10 ML PF VIAL ONE (13:14)
[2019-04-16] MEDS ORDERED: Oxytocin 10 UNITS/ML VIAL ONE ×2 (13:14→14:19)
[2019-04-16] MEDS ORDERED: Dexamethasone 4 mg/ml Vial ONE (13:14)
[2019-04-16] MEDS ORDERED: Lanolin Ointment 7 GM TUBE TOP PRN (18:22)
[2019-04-16] MEDS ORDERED: hydrALAZINE 20 MG/ML VIAL SLOW IVP PRN (18:22)
[2019-04-16] MEDS ORDERED: NS / Oxytocin 40 units/1000ml 1,000 ML IV SCH (18:22)
[2019-04-16] MEDS ORDERED: Simethicone Chewable 80 MG TAB PO PRN (18:22)
[2019-04-16] MEDS ORDERED: HYDROcodone/Acetaminophen 5/325 mg Tablet PO PRN (18:22)
[2019-04-16] MEDS ORDERED: Bisacodyl 10 MG SUPP PR PRN (18:22)
[2019-04-16] MEDS ORDERED: Naloxone HCl 0.4 mg/ml Vial IVP PRN ×2 (20:23)
[2019-04-16] MEDS ORDERED: Promethazine HCl 25 MG/ML VIAL IM PRN (20:23)
[2019-04-16] MEDS ORDERED: Ondansetron PF 4 MG/2 ML Vial IVP PRN (20:23)
[2019-04-16] MEDS ORDERED: Naloxone HCl 0.4 mg/ml Vial IV PRN (20:23)
[2019-04-16] MEDS ORDERED: Promethazine HCl 25 MG SUPP PR PRN (20:23)
[2019-04-16] MEDS ORDERED: Ketorolac Tromethamine 30 MG/ML VIAL IVP PRN (20:23)
[2019-04-16] MEDS ORDERED: Communication Order-Pharmacy FS SCH (20:30)
[2019-04-16] MEDS: diphenhydrAMINE 50 MG/ML VIAL IVP PRN (20:31)
[2019-04-16] MEDS: Ferrous Sulfate 325 MG TAB PO SCH (23:29)
[2019-04-16] MEDS: Docusate Calcium (SURFAK) 240 MG CAP PO SCH (23:29)
[2019-04-16] MEDS: Ibuprofen 800 MG TAB PO SCH (23:29)
[2019-04-17] MEDS: diphenhydrAMINE 50 MG/ML VIAL IVP PRN (00:36)
[2019-04-17] MEDS ORDERED: Sodium Chloride 0.9% 10 ML ONE (04:27)
[2019-04-17 05:19] LABS: Hemoglobin 8.2 g/dL (12.0-16.0); Mean Corpuscular HGB CONC 32.8 g/dL (32.0-36.0); Mean Corpuscular Hemoglobin 27.1 pg (27.0-31.0); Mean Corpuscular Volume 82.5 fL (78.0-98.0); Mean Platelet Volume 11.6 fL (7.4-10.4); Platelet Count 99 thou/uL (130-400); RBC Distribution Width 15.3 % (11.5-14.5); Red Blood Cell (RBC) Count 3.03 mill/uL (4.20-5.40); White Blood Cell (WBC) Count 11.7 thou/uL (4.8-10.8)
[2019-04-17] MEDS ORDERED: Adacel (T-DAP) 0.5 ML SYRINGE IM ONE (09:00)
[2019-04-17] MEDS ORDERED: Measles/Mumps/Rubella 10 MCG/0.5 ML VIAL SC ONE (09:00)
[2019-04-17] MEDS ORDERED: Varicella virus, LIVE 0.5 ML VIAL SC ONE (09:00)
[2019-04-17] MEDS: Prenatal Vitamin 1 TAB PO SCH (10:02)
[2019-04-17] MEDS: Ferrous Sulfate 325 MG TAB PO SCH ×2 (10:02→21:35)
[2019-04-17] MEDS: Docusate Calcium (SURFAK) 240 MG CAP PO SCH ×2 (10:04→21:35)
--- NOTE | 2019-04-17 10:50 | PDOC.EVN ---
Event Note - Event Note Event Note: 04/16/19 12:59 - Blank Note by Carin Cruz Acct Num: [id number] : 1995 Patient Age: 23 FM Attending Pre-op Note 23 yo female @36.3 weeks with mono-di twin IUP and 2 prior C/sections admitted for repeat . Patient noted at antepartum visit to have severe anemia. Admitted last night for pre-operative blood transfusion. Transfused 2u pRBCs and post-transfusion H/H=9.1/27.5 now. Category 1 FHTs. Plan to proceed with repeat today.
--- NOTE | 2019-04-17 11:03 | PDOC.EVN ---
Event Note - Event Note Event Note: 04/16/2019 1630 23 yo @ 36.3 weeks underwent a repeat LCT C/S for mono-di twins and h/ o 2 prior C-sections with my assistance and supervision. Viable twin females delivered in vtx/vtx presentation. Apgars 7/9 for each twin. Placenta to pathology. No complications. EBL 525 mL Residents: Josh/Guevara. Mother to RR and infants to nursery.
--- NOTE | 2019-04-17 11:14 | PDOC.PP ---
Post Progress Note Post Day #: 1 Subjective: No significant overnight events. Patient not talking much this AM. She says she is tired. Has yet to pass flatus or have BM. She has ambulated to restroom. Lujan was removed yesterday. Patient denies lochia. PO intake tolerated: yes Flatus: no Ambulation: yes Vital Signs (12 hours) Temp Pulse Resp BP Pulse Ox 04/17/19 08:45 98.1 F 52 L 14 128/69 96 04/17/19 04:25 98.5 F 76 18 101/57 L 04/17/19 00:36 98.5 F 67 18 102/53 L Weight Weight 84.822 kg - Physical Examination General: NAD Cardiovascular: RRR Deviation from normal: 3/6 systolic murmur Respiratory: clear to auscultation bilaterally, non-labored breathing Abdominal: + bowel sounds, lochia (minimal), no distention, appropriately TTP Fundus firm & at: at umbilicus Extremities: negative homans (B) Deviation from normal: pressure dressing in place Neurological: no gross focal deficits Psychiatric: A&Ox3, normal affect Result Diagrams: 04/17/19 04:53 Additional Labs: Post Labs Blood Type O POSITIVE 04/15/19 23:28 Hep Bs Antigen Non-Reactive S/CO (NonReactive) 04/15/19 23:28 (1) Monochorionic diamniotic twin gestation in third trimester Code(s): O30.033 - TWIN , MONOCHORIONIC/DIAMNIOTIC, THIRD TRIMESTER Status: Acute (2) Anemia affecting in third trimester Code(s): O99.013 - ANEMIA COMPLICATING , THIRD TRIMESTER Status: Acute (3) Seizure disorder Code(s): G40.909 - EPILEPSY, UNSP, NOT INTRACTABLE, WITHOUT STATUS EPILEPTICUS Status: Acute (4) No care in current Code(s): O09.30 - SUPRVSN OF PREG W INSUFFICIENT ANTENAT CARE, UNSP TRIMESTER Status: Acute (5) Previous delivery, delivered Code(s): O34.219 - MATERNAL CARE FOR UNSP TYPE SCAR FROM PREVIOUS DEL Status: Acute - Assessment/Plan 23 y/o at 36.3 wks by 24.5 wk sono delivered mono-di twin females at 14: 15 and 14:16 on 04/16 vis rLTCS. Apgars 7/9 for baby A and B 1. Routine PP care - Post op day #1 - Encourage ambulation - Bowel regimen in place - Encouraged bonding with - CM consult in place for No PNC - Remove pressure dressing after 24 hours - Elevated BP's immediately post-delivery which have since resolved without any interventions. Continue to monitor. 2. Anemia of - s/p 2 units pRBC's prior to C/S - Post-op Hg/Hct 8.2/25.0 - H/H trend: 7.6/22.7 --> 9.1/27.5 --> 8.2/25.0 - Continue to monitor 3. No PNC - UDS negative x2 - CM consult pending 4. Systolic murmur - Evident prior to C/S - Likely flow murmur from significant anemia - Will continue to monitor - Patient may need echo outpatient Dispo: Plan for d/c home in 48 hours. Addendum - Attending - Attending Attestation Date/Time: 04/17/19 1954 I personally evaluated the patient and discussed the management with Dr. Moreno I agree with the History, Examination, Assessment and Plan documented above with any addition or exceptions noted below - Patient without complaints. Pain well controlled. Afebrile VSS. A/P: 1) POD#1 s/p repeat LCT C/S - continue current care; H/H stable.
[2019-04-17] MEDS: Ibuprofen 800 MG TAB PO SCH ×5 (15:19→22:48)
[2019-04-17] MEDS: HYDROcodone/Acetaminophen 5/325 mg Tablet PO PRN (22:49)
[2019-04-18] MEDS: Ibuprofen 800 MG TAB PO SCH ×3 (06:20→21:07)
[2019-04-18] MEDS: Ferrous Sulfate 325 MG TAB PO SCH ×2 (08:20→21:06)
[2019-04-18] MEDS: Docusate Calcium (SURFAK) 240 MG CAP PO SCH ×2 (08:21→21:06)
[2019-04-18] MEDS: Prenatal Vitamin 1 TAB PO SCH (08:21)
[2019-04-18] MEDS: HYDROcodone/Acetaminophen 5/325 mg Tablet PO PRN ×2 (08:21→21:07)
--- NOTE | 2019-04-18 10:18 | PDOC.PP ---
Post Progress Note Post Day #: 2 Subjective: Patient doing well this AM. No significant overnight events. Patient tolerating PO. She was eating breakfast on exam. Patient states she has minimal lochia. She does not note significant amount of drainage from wound. PO intake tolerated: yes Flatus: yes Ambulation: yes Vital Signs (12 hours) Temp Pulse Resp BP Pulse Ox 04/18/19 07:35 98.4 F 54 L 16 128/61 97 04/18/19 03:55 98.2 F 64 18 131/70 04/17/19 23:45 98.1 F 83 18 108/59 L Weight Weight 84.822 kg - Physical Examination General: NAD Cardiovascular: RRR Respiratory: non-labored breathing Abdominal: + bowel sounds, lochia (minimal), no distention, appropriately TTP Fundus firm & at: below umbilicus Extremities: negative homans (B) Skin: no rash Deviation from normal: Incision with minimal bleeding, no dihesence evident, no purulence Result Diagrams: 04/17/19 04:53 Additional Labs: Post Labs Blood Type O POSITIVE 04/15/19 23:28 Hep Bs Antigen Non-Reactive S/CO (NonReactive) 04/15/19 23:28 (1) Monochorionic diamniotic twin gestation in third trimester Code(s): O30.033 - TWIN , MONOCHORIONIC/DIAMNIOTIC, THIRD TRIMESTER Status: Acute (2) Anemia affecting in third trimester Code(s): O99.013 - ANEMIA COMPLICATING , THIRD TRIMESTER Status: Acute (3) Seizure disorder Code(s): G40.909 - EPILEPSY, UNSP, NOT INTRACTABLE, WITHOUT STATUS EPILEPTICUS Status: Acute (4) No care in current Code(s): O09.30 - SUPRVSN OF PREG W INSUFFICIENT ANTENAT CARE, UNSP TRIMESTER Status: Acute (5) Previous delivery, delivered Code(s): O34.219 - MATERNAL CARE FOR UNSP TYPE SCAR FROM PREVIOUS DEL Status: Acute - Assessment/Plan 23 y/o at 36.3 wks by 24.5 wk sono delivered mono-di twin females at 14: 15 and 14:16 on 04/16 vis rLTCS. Apgars 7/9 for baby A and B 1. Routine PP care - Post op day #2 - Encourage ambulation - Bowel regimen in place - Encouraged bonding with - CM consult in place for No PNC - C/S incision with minimal bleeding. Some ayah falling out, but no obvious dehiscence of wound. No purulent drainage. - Elevated BP's immediately post-delivery which have since resolved without any interventions. Continue to monitor. 2. Anemia of - s/p 2 units pRBC's prior to C/S - Post-op Hg/Hct 8.2/25.0 - H/H trend: 7.6/22.7 --> 9.1/27.5 --> 8.2/25.0 - Continue to monitor for S/S anemia 3. No PNC - UDS negative x2 - CM consult pending 4. Systolic murmur - Evident prior to C/S - Likely flow murmur from significant anemia - Will continue to monitor - Patient may need echo outpatient Dispo: Plan for d/c home in next 24 hours. Addendum - Attending - Attending Attestation Date/Time: 04/18/19 1112 I personally evaluated the patient and discussed the management with Dr. Moreno I agree with the History, Examination, Assessment and Plan documented above with any addition or exceptions noted below - Patient without complaints. Tolerating regular diet. Ambulating, voiding. A/P: 1) POD#2 s/p repeat c/ section- continue current care; encourage ambulation.
[2019-04-18 18:57] LABS: Chlam.trachomatis by PCR,Urine Not Detected (NotDetected)
[2019-04-19] MEDS: Ibuprofen 800 MG TAB PO SCH ×3 (05:30→21:09)
--- NOTE | 2019-04-19 08:23 | PDOC.PP ---
Post Progress Note Post Day #: 3 Subjective: Patient doing well. No significant overnight events. Patient tolerating PO and ambulating. C/S incision is draining minimally, there is an open area in the center. Patient endorses minimal lochia. PO intake tolerated: yes Flatus: yes Ambulation: yes Vital Signs (12 hours) Temp Pulse Resp BP Pulse Ox 04/19/19 07:59 98.1 F 68 20 154/98 H 100 04/19/19 05:30 98.3 F 59 L 148/79 H 04/18/19 23:15 97.7 F 67 20 147/82 H 04/18/19 20:30 99 Weight Weight 84.822 kg - Physical Examination General: NAD Cardiovascular: RRR Deviation from normal: 3/6 systolic murmur Respiratory: non-labored breathing Abdominal: + bowel sounds, lochia (minimal), no distention, appropriately TTP Fundus firm & at: below umbilicus Extremities: negative homans (B) Skin: no rash Deviation from normal: C/S incision small opening in center with mild drainage, non-purulent Neurological: no gross focal deficits Psychiatric: A&Ox3, normal affect Result Diagrams: 04/17/19 04:53 Additional Labs: Post Labs Blood Type O POSITIVE 04/15/19 23:28 Hep Bs Antigen Non-Reactive S/CO (NonReactive) 04/15/19 23:28 (1) Monochorionic diamniotic twin gestation in third trimester Code(s): O30.033 - TWIN , MONOCHORIONIC/DIAMNIOTIC, THIRD TRIMESTER Status: Acute (2) Anemia affecting in third trimester Code(s): O99.013 - ANEMIA COMPLICATING , THIRD TRIMESTER Status: Acute (3) Seizure disorder Code(s): G40.909 - EPILEPSY, UNSP, NOT INTRACTABLE, WITHOUT STATUS EPILEPTICUS Status: Acute (4) No care in current Code(s): O09.30 - SUPRVSN OF PREG W INSUFFICIENT ANTENAT CARE, UNSP TRIMESTER Status: Acute (5) Previous delivery, delivered Code(s): O34.219 - MATERNAL CARE FOR UNSP TYPE SCAR FROM PREVIOUS DEL Status: Acute - Assessment/Plan 23 y/o at 36.3 wks by 24.5 wk sono delivered mono-di twin females at 14: 15 and 14:16 on 04/16 vis rLTCS. Apgars 7/9 for baby A and B 1. Routine PP care - Post op day #3 - Encourage ambulation - Bowel regimen in place - Encouraged bonding with infant - CM consult in place for No PNC - C/S incision with minimal bleeding. Some ayah falling out, but no obvious dehiscence of wound. No purulent drainage. Small opening in center. 2. Anemia of - s/p 2 units pRBC's prior to C/S - Post-op Hg/Hct 8.2/25.0 - H/H trend: 7.6/22.7 --> 9.1/27.5 --> 8.2/25.0 - Continue to monitor for S/S anemia 3. No PNC - UDS negative x2 - CM consult pending 4. Systolic murmur - Evident prior to C/S - Likely flow murmur from significant anemia - Will continue to monitor - Patient may need echo outpatient 5. Elevated BP without diagnosis of HTN - SBP high to 154. Given patient has anemia and thrombocytopenia at baseline. Thus, pre-E labs likely not beneficial. Will continue to monitor and treat for BP >160/110. Dispo: Continue to monitor BP. Will keep patient overnight. Possible d/c vs. bed and breakfast tomorrow. Addendum - Attending - Attending Attestation Date/Time: 04/19/19 6724 I personally evaluated the patient and discussed the management with Dr. Moreno. I agree with the History, Examination, Assessment and Plan documented above with any addition or exceptions noted below. POD #3 s/p RLTCS. Meeting appropriate milestones. Incision is clean/dry/intact without surrounding erythema or drainage. BP elevated in mild range. Denies QUICK, vision changes or RUQ pain. Will keep an additional night to monitor. If severe range will need magnesium. Anticipate d/c to home tomorrow
[2019-04-19] MEDS: Ferrous Sulfate 325 MG TAB PO SCH ×2 (09:32→21:10)
[2019-04-19] MEDS: Docusate Calcium (SURFAK) 240 MG CAP PO SCH ×2 (09:32→21:09)
[2019-04-19] MEDS: Prenatal Vitamin 1 TAB PO SCH (09:32)
--- NOTE | 2019-04-19 10:35 | OP ---
DATE OF PROCEDURE: 04/16/2019 RESIDENT SURGEON: Dr. Irma Moreno. SHEET METAL SUPERVISOR SURGEON: Dr. Danish Waterman. PROCEDURE PERFORMED: Repeat low transverse section. PREOPERATIVE DIAGNOSES: 1. intrauterine at 36 and 3 weeks. 2. [place]-di twin gestation. 3. Previous section x2. 4. History of seizure disorder. 5. Limited/no care. POSTOPERATIVE DIAGNOSES: 1. intrauterine , delivered. 2. [place]-di twin gestation. 3. Previous section x2. 4. History of seizure disorder. 5. Limited/no care. ANESTHESIA: Spinal. INDICATIONS: This is a 23-year-old, G3, P 2-0-0-2 at 36 and 3 weeks by 24 and 5-week ultrasound, who presented for repeat scheduled . The patient was admitted to the hospital the day prior as she has had no care and was noted to have a hemoglobin of 7.9 during a triage visit to Labor and Delivery on 04/01. She was transfused 2 units of packed red blood cells in preparation for her section on 04/16 at noon. DESCRIPTION OF PROCEDURE: After risks, benefits, and alternatives were explained to the patient, she gave informed consent. Preoperative antibiotics included cefazolin 2 g IV. The patient was taken to the operating room, and spinal anesthesia was initiated. She was placed in a supine position with a left tilt and prepped and draped in the usual sterile fashion. The Pfannenstiel incision was made with a scalpel and carried down to the level of the fascia, which was sharply nicked. The fascial cut was extended bilaterally with Aggarwal scissors. There was extensive scarring during this process, which required sharp dissection. The inferior and superior edges of the cut fascial edges were elevated with Parminder clamps, and underlying rectus muscles were sharply dissected free. Again, there was noted to be extensive scarring, requiring only sharp dissection. The recti were divided via Aggarwal scissors in the midline. They were then retracted manually. The peritoneum was entered simultaneously with the recti muscles as both were adhered together. A bladder blade was placed. Uterine window was noted, and an Allis clamp was used to enter the uterus, which was extended in a vertical fashion. The Allis clamp was used to artificially rupture the membranes of baby A. Clear fluid was seen. The infant was noted to be vertex and was easily delivered by fundal pressure. Mouth and nares were bulb suctioned. Cord was clamped and cut and grossly normal female was handed to waiting nurse. The amniotic sac of baby B was then ruptured using Allis clamps, and baby B was noted to be in the vertex position and was easily delivered by fundal pressure. Baby B's cord was clamped and cut and grossly normal female was handed to the waiting nurse. Cord blood for baby B was also collected. There was noted to be only one placenta, which was manually extracted and found to have two separate umbilical cords with three vessels noted. The placenta was sent for pathology. The uterus was externalized, and the endometrium was curetted with a dry lap. The bladder blade was placed, and the uterus was closed with a running locking #1 Monocryl. A [id number] stitch was also needed at the hysterotomy site for hemostasis. The abdomen was irrigated and suctioned free of clots. The uterus was internalized, and hysterotomy was again noted to be hemostatic. The fascia was closed with a running nonlocking 0 Vicryl suture. Subcutaneous tissue was irrigated, and bleeders were cauterized. Subcutaneous tissue was brought together using 2-0 plain gut. The skin was approximated with ayah, and a pressure dressing was placed. All counts were correct. The patient tolerated the procedure well and was taken to the recovery room in stable condition. ESTIMATED BLOOD LOSS: 525 mL. COMPLICATIONS: None. SPECIMENS: Cord blood sent to lab for blood type. Placenta sent for pathology. FINDINGS: Grossly normal female infants with Apgars of 7 and 9 for both infant A and B. Grossly normal placenta with two cords and three vessels noted on both of those cords. This was sent for pathology. DRAINS: Lujan to gravity, draining clear urine. Job ID: [id number]
[2019-04-19] MEDS: HYDROcodone/Acetaminophen 5/325 mg Tablet PO PRN (21:10)
[2019-04-20] MEDS: Ibuprofen 800 MG TAB PO SCH ×2 (06:08→15:23)
--- NOTE | 2019-04-20 07:39 | PDOC.PP ---
Post Progress Note Post Day #: 4 Subjective: Patient doing well. No significant overnight events. Patient tolerating PO. Patient ambulating. Patient without questions or concerns this AM. Minimal lochia. PO intake tolerated: yes Flatus: yes Ambulation: yes Vital Signs (12 hours) Temp Pulse Resp BP BP Pulse Ox 04/20/19 04:40 97.8 F 82 16 124/82 04/20/19 00:10 98.5 F 73 16 125/70 96 04/19/19 19:50 97.7 F 63 20 146/77 H 100 Weight Weight 84.822 kg - Physical Examination General: NAD Cardiovascular: RRR Respiratory: non-labored breathing Abdominal: + bowel sounds, lochia (minimal), no distention, appropriately TTP Fundus firm & at: below umbilicus Extremities: negative homans (B) Skin: no rash Deviation from normal: Midline incision slightly opened w/o purulent drainage Neurological: no gross focal deficits Psychiatric: A&Ox3 Result Diagrams: 04/17/19 04:53 Additional Labs: Post Labs Blood Type O POSITIVE 04/15/19 23:28 Hep Bs Antigen Non-Reactive S/CO (NonReactive) 04/15/19 23:28 (1) Monochorionic diamniotic twin gestation in third trimester Code(s): O30.033 - TWIN , MONOCHORIONIC/DIAMNIOTIC, THIRD TRIMESTER Status: Acute (2) Anemia affecting in third trimester Code(s): O99.013 - ANEMIA COMPLICATING , THIRD TRIMESTER Status: Acute (3) Seizure disorder Code(s): G40.909 - EPILEPSY, UNSP, NOT INTRACTABLE, WITHOUT STATUS EPILEPTICUS Status: Acute (4) No care in current Code(s): O09.30 - SUPRVSN OF PREG W INSUFFICIENT ANTENAT CARE, UNSP TRIMESTER Status: Acute (5) Previous delivery, delivered Code(s): O34.219 - MATERNAL CARE FOR UNSP TYPE SCAR FROM PREVIOUS DEL Status: Acute - Assessment/Plan 23 y/o at 36.3 wks by 24.5 wk sono delivered mono-di twin females at 14: 15 and 14:16 on 04/16 vis rLTCS. Apgars 7/9 for baby A and B 1. Routine PP care - Post op day #4 - Encourage ambulation - Bowel regimen in place - Encouraged bonding with - CM consulted; appear to be without concerns. - C/S incision with minimal bleeding. Some ayah falling out, but no obvious dehiscence of wound. No purulent drainage. Small opening in center. 2. Anemia of - s/p 2 units pRBC's prior to C/S - Post-op Hg/Hct 8.2/25.0 - H/H trend: 7.6/22.7 --> 9.1/27.5 --> 8.2/25.0 - Continue to monitor for S/S anemia 3. No PNC - UDS negative x2 - CM consulted; no concerns from CM regarding infant safety 4. Systolic murmur - Evident prior to C/S - Likely flow murmur from significant anemia - Will continue to monitor - Patient may need echo outpatient 5. Elevated BP without diagnosis of HTN - SBP high to 147 overnight. Given patient has anemia and thrombocytopenia at baseline. Thus, pre-E labs likely not beneficial. - BP check at follow up PNC visit Dispo: Patient to be d/c'd to bed and breakfast today if that is an option. Addendum - Attending - Attending Attestation Date/Time: 04/20/19 2108 I personally evaluated the patient and discussed the management with Dr. Moreno I agree with the History, Examination, Assessment and Plan documented above with any addition or exceptions noted below. POD #4. Stable for d/c today.
[2019-04-20] MEDS: Docusate Calcium (SURFAK) 240 MG CAP PO SCH (09:35)
[2019-04-20] MEDS: Ferrous Sulfate 325 MG TAB PO SCH (09:35)
[2019-04-20] MEDS: Prenatal Vitamin 1 TAB PO SCH (09:35)
[2019-04-20] MEDS: HYDROcodone/Acetaminophen 5/325 mg Tablet PO PRN (09:36)
[2019-04-20 12:09] VITALS: BP 117/77; TEMP 97.6
== END 2019-04-20 16:20 | disposition home or self-care (01) | DRG 787 ==
LOC: L&D 21:41 → 3SW 04-16 18:38
PROVIDERS: ADMIT Family Medicine; ATTEND Family Medicine
PROC: 10D00Z1 Extraction of Products of Conception, Low, Open Approach (ICD-10-PCS; principal; 2019-04-20)
PROC: 30233N1 Transfusion of Nonautologous Red Blood Cells into Peripheral Vein, Percutaneous Approach (ICD-10-PCS; 2019-04-20)
PROC: 30233R1 Transfusion of Nonautologous Platelets into Peripheral Vein, Percutaneous Approach (ICD-10-PCS; 2019-04-20)
DX: O30.033 Twin pregnancy, monochorionic/diamniotic, third trimester (principal); O99.354 Diseases of the nervous system complicating childbirth; O99.12 Other diseases of the blood and blood-forming organs and certain disorders involving the immune mechanism complicating childbirth; O99.13 Other diseases of the blood and blood-forming organs and certain disorders involving the immune mechanism complicating the puerperium; O34.211 Maternal care for low transverse scar from previous cesarean delivery; G40.909 Epilepsy, unspecified, not intractable, without status epilepticus; D64.9 Anemia, unspecified; D69.6 Thrombocytopenia, unspecified; R03.0 Elevated blood-pressure reading, without diagnosis of hypertension; Z3A.36 36 weeks gestation of pregnancy; Z37.2 Twins, both liveborn
CPT/HCPCS: 36415; 36430; 51702; 80306; 85027; 86780; 86850; 86900; 86901; 87340; 87389; 87491; 87591; 88307; J0690; J1100; J1200; J1885; J2274; J2405; J2590; J3490; P9016; P9035

== ENCOUNTER 2023-03-12 17:34 | Emergency (ER) | payer OTHER ==
[2023-03-12] MEDS ORDERED: Ondansetron ODT 4 MG TAB ONE (18:00)
[2023-03-12] MEDS ORDERED: Ketorolac Tromethamine 30 MG/ML VIAL ONE (18:00)
[2023-03-12 19:19] LABS: SARS-CoV-2 NAA Rapid Test Not Detected (NotDetected)
== END 2023-03-12 18:51 | disposition home or self-care (01) ==
LOC: ERS 17:34
DX: R11.2 Nausea with vomiting, unspecified (principal)
CPT/HCPCS: 96372; 99284; J1885; Q0162

== ENCOUNTER 2024-05-25 16:30 | Emergency (ER) | payer MEDICAID, OTHER ==
[2024-05-25] MEDS ORDERED: Ketorolac Tromethamine 30 MG (1 mL) VIAL ONE (17:20)
== END 2024-05-25 17:35 | disposition home or self-care (01) ==
LOC: ERS 16:30
DX: L02.414 Cutaneous abscess of left upper limb (principal); F17.200 Nicotine dependence, unspecified, uncomplicated
CPT/HCPCS: 96372; 99283; J1885

== ENCOUNTER 2024-05-30 15:11 | Emergency (ER) | payer OTHER ==
[2024-05-30] MEDS ORDERED: Lidocaine 1% PF 5 ML VIAL ONE (15:34)
[2024-05-30] MEDS ORDERED: HYDROcodone/Acetaminophen 5/325 mg Tablet ONE (16:16)
[2024-05-30] MEDS ORDERED: Boostrix 0.5 ML (Tdap) VIAL (>/=7 yrs of age) ONE (16:23)
== END 2024-05-30 17:04 | disposition home or self-care (01) ==
LOC: ERS 15:11
DX: L02.412 Cutaneous abscess of left axilla (principal); F17.200 Nicotine dependence, unspecified, uncomplicated
CPT/HCPCS: 10060; 87070; 87205; 90471; 90715

== ENCOUNTER 2024-08-10 15:15 | Emergency (ER) | payer OTHER ==
[2024-08-10] MEDS ORDERED: HYDROcodone/Acetaminophen 5/325 mg Tablet ONE (16:45)
== END 2024-08-10 16:50 | disposition home or self-care (01) ==
LOC: ERS 15:15
DX: S02.5XXA Fracture of tooth (traumatic), initial encounter for closed fracture (principal); H60.91 Unspecified otitis externa, right ear; K02.9 Dental caries, unspecified; X58.XXXA Exposure to other specified factors, initial encounter; F17.200 Nicotine dependence, unspecified, uncomplicated
CPT/HCPCS: 99282

== ENCOUNTER 2024-08-29 00:50 | Emergency (ER) | payer OTHER ==
[2024-08-29 01:22] LABS: Actual Bicarbonate (HCO3v) 21.4 mEq/L (22-28); Base Excess -4.8 mEq/L (-2.0 to +3.0); Calcium, Ionized (venous) 1.16 mmol/L (1.16-1.32); Chloride (VBG) 104 mmol/L (98-106); Hematocrit-VBG 41 % (36.0-47.0); Hemoglobin (Hb) 13.9 g/dL (11.7-15.5); Potassium (VBG) 3.43 mmol/L (3.70-5.30); Sodium 143 mmol/L (133-146); pH (venous) 7.308 (7.32-7.43)
[2024-08-29 01:26] LABS: #Basophils 0.08 10x3/uL (0.0-0.2); %Eosinophils 3.2 % (0.0-10.0); %Lymphocytes 29.1 % (21.0-51.0); %Monocytes 4.1 % (0.0-10.0); %Neutrophils 61.6 % (42.0-75.0); Hematocrit 38.2 % (36.0-47.0); Hemoglobin 12.5 g/dL (12.0-16.0); Mean Corpuscular HGB CONC 32.7 g/dL (32.0-36.0); Mean Corpuscular Hemoglobin 28.2 pg (27.0-31.0); Mean Corpuscular Volume 86.2 fL (78.0-98.0); Mean Platelet Volume 11.3 fL (7.4-10.4); Platelet Count 201 10x3/uL (130-400); RBC Distribution Width 13.6 % (11.5-14.5); Red Blood Cell (RBC) Count 4.43 mill/uL (4.20-5.40)
[2024-08-29 01:41] LABS: BHCG - Serum Negative (NEGATIVE); Pregs Control Background? CLEAR/WHITE (CLR/WHITE); Pregs Control Bar Appear? YES (CONTROL BAR)
[2024-08-29 01:45] LABS: ALT (SGPT) 59 U/L (8-55); AST (SGOT) 24 U/L (5-34); Albumin 4.1 g/dL (3.5-5.0); Alkaline Phosphatase 143 U/L (40-110); Anion Gap 17 mmol/L (10-20); BUN (Urea Nitrogen) 9 mg/dL (7.0-18.7); Bilirubin, Total 0.4 mg/dL (0.2-1.2); Calc. Creatinine Clearance 0 mL/min (70-130); Calcium 9.4 mg/dL (7.8-10.44); Carbon Dioxide 22 mmol/L (22-29); Chloride 105 mmol/L (98-107); Estimated GFR 75; Globulin 4.4 g/dL (2.4-3.5); Glucose 96 mg/dL (70-105); Potassium 3.3 mmol/L (3.5-5.1); Protein, Total 8.5 g/dL (6.0-8.3); Sodium 141 mmol/L (136-145)
[2024-08-29 01:46] LABS: Acetaminophen Less than 10 mcg/mL (Less than 10); Alcohol 157.5 mg/dL (Less than 10); Salicylate Less than 8.0 mg/dL (Less than 8.0)
[2024-08-29 02:30] LABS: Amphetamine Not Detected (NotDetected); Barbiturates Screen Not Detected (NotDetected); Benzodiazepine Screen Not Detected (NotDetected); Cocaine Metabolite Screen Not Detected (NotDetected); Methadone Not Detected (NotDetected); Methamphetamine Not Detected (NotDetected); Opiate Screen Not Detected (NotDetected); Oxycodone Screen Not Detected (NotDetected); Phencyclidine (PCP) Not Detected (NotDetected); THC/Cannabinoid Screen Detected (NotDetected); Tricyclic Screen Not Detected (NotDetected)
== END 2024-08-29 03:18 | disposition home or self-care (01) ==
LOC: ERS 00:50
DX: R41.82 Altered mental status, unspecified (principal); F10.129 Alcohol abuse with intoxication, unspecified; F17.290 Nicotine dependence, other tobacco product, uncomplicated; Z55.6 Problems related to health literacy; Z86.69 Personal history of other diseases of the nervous system and sense organs; Y04.0XXA Assault by unarmed brawl or fight, initial encounter
CPT/HCPCS: 36416; 70450; 80053; 80306; 80307; 82805; 84703; 85025; 93005

== ENCOUNTER 2024-10-04 18:52 | Emergency (ER) | payer OTHER ==
[2024-10-04] MEDS ORDERED: Bupivacaine 0.25% 10 ML VIAL ONE (20:55)
[2024-10-04] MEDS ORDERED: Ketorolac Tromethamine 30 MG (1 mL) VIAL ONE (21:59)
[2024-10-04] MEDS ORDERED: Metoclopramide HCl 10 MG (2 mL) VIAL ONE (21:59)
== END 2024-10-04 22:41 | disposition home or self-care (01) ==
LOC: ERS 18:52
DX: K04.7 Periapical abscess without sinus (principal); G43.909 Migraine, unspecified, not intractable, without status migrainosus; F17.210 Nicotine dependence, cigarettes, uncomplicated
CPT/HCPCS: 64400; 70450; 70486; 96372; J0665; J1885; J2765